=== PATIENT | male | born 1960 | race Caucasian/White ===

== ENCOUNTER 2021-06-25 09:13 | Emergency (ER) | payer OTHER ==
[~2021-06-25] VITALS: Ht 182.9 cm; Wt 127.3 kg
[2021-06-25 09:27] VITALS: TEMP 98.1
[2021-06-25] MEDS ORDERED: MEDROL 4MG DOSPA4 MG PO (10:50)
[2021-06-25] MEDS ORDERED: FLEXERIL 1010 MG/TAB PO (10:50)
[2021-06-25] MEDS ORDERED: PRINIVIL10 MG PO (10:50)
[2021-06-25] MEDS ORDERED: NORCO 325 MG-51 TAB PO (10:50)
[2021-06-25 10:57] VITALS: BP 183/103; PULSE 84
== END 2021-06-25 11:09 | disposition home or self-care (01) ==
LOC: COL.ER 09:13
DX: M54.42 Lumbago with sciatica, left side (principal); I10 Essential (primary) hypertension